=== PATIENT | female | born 1990 | race Caucasian/White ===

== ENCOUNTER 2020-08-05 01:53 | Emergency (ER) | payer SELFPAY ==
[2020-08-05 08:50] LABS: APPEARANCE,URINE SLIGHTLY-CLOUDY; BILIRUBIN,URINE NEGATIVE (NEGATIVE); COLOR,URINE YELLOW; GLUCOSE, URINE NEGATIVE (NEGATIVE); KETONES,URINE NEGATIVE (NEGATIVE); LEUKOCYTE ESTERASE,URINE TRACE (NEGATIVE); NITRITE,URINE NEGATIVE (NEGATIVE); PROTEIN,URINE NEGATIVE (NEGATIVE); URINE SPECIFIC GRAVITY 1.025
[2020-08-05] MEDS ORDERED: PREDNISONE 20 MG TABLET PO ONE (08:58)
[2020-08-05] MEDS ORDERED: LIDOCAINE 2% VISCOUS SOLN 15 ML UDCUP PO ONE (08:58)
[2020-08-05] MEDS ORDERED: METOCLOPRAMIDE HCL ORAL SOLN 10 MG/10 ML UDCUP PO ONE (08:58)
[2020-08-05] MEDS ORDERED: BENZONATATE 100 MG CAPSULE PO ONE (08:58)
[2020-08-05] MEDS ORDERED: MAG HYDROX/AL HYDROX/SIMETH SUSP 30 ML UDCUP PO ONE (08:58)
--- NOTE | 2020-08-05 08:59 | ER Document Report ---
ED General - General Chief Complaint: Black/Tarry Stools Stated Complaint: BLACK STOOL BURNING IN STOMACH Time Seen by Provider: 08/05/20 08:39 Mode of Arrival: Ambulatory Information source: Patient Notes: Otherwise healthy 30-year-old female presenting to the emergency department with chief complaint of cough that has been ongoing for the last 6 months. She reports it is a dry nonproductive cough. She is also complaining of black tarry stools for the last 3 days. She does report a history of acid reflux and states she was taking Pepto-Bismol which she is wondering if that is contributing to her black stools. She denies any fever, chills, nausea, vomiting or diarrhea. - Related Data Allergies/Adverse Reactions: No Known Allergies Allergy (Verified 08/05/20 02:58) Home Medications: finished amoxicillin Past Medical History - Social History Smoking Status: Never Smoker Family History: None Physical Exam - Vital signs Vitals: Temp Pulse Resp BP Pulse Ox 98.8 F 101 H 15 147/88 H 100 08/05/20 02:00 08/05/20 02:00 08/05/20 02:00 08/05/20 02:00 08/05/20 02:00 Course - Re-evaluation Re-evalutation: 08/05/20 10:56 Rectal exam performed with TALI Moore as metaphysicist. No blood on Hemoccult card. Patient's work-up today was reassuring. Laboratory investigations show no acute abnormalities. Black tarry stools likely secondary to recent Pepto-Bismol use. Patient will follow up with primary care. Chest X-Ray 08/05/20 08:59 IMPRESSION: NO ACUTE RADIOGRAPHIC FINDING IN THE CHEST. Laboratory 08/05/20 08/05/20 08/05/20 08:12 08:29 08:29 WBC Cancelled RBC Cancelled Hgb Cancelled Hct Cancelled MCV Cancelled MCH Cancelled MCHC Cancelled RDW Cancelled Plt Count Cancelled Lymph % (Auto) Cancelled Summers % (Auto) Cancelled Eos % (Auto) Cancelled Baso % (Auto) Cancelled Absolute Neuts (auto) Cancelled Absolute Lymphs (auto) Cancelled Absolute Monos (auto) Cancelled Absolute Eos (auto) Cancelled Absolute Basos (auto) Cancelled Total Counted Seg Neutrophils % Cancelled Seg Neuts % (Manual) Lymphocytes % (Manual) Monocytes % (Manual) Eosinophils % (Manual) Basophils % (Manual) Abs Neuts (Manual) Abs Lymphs (Manual) Abs Monocytes (Manual) Absolute Eos (Manual) Abs Basophils (Manual) Platelet Estimate Cancelled Clumped Platelets Platelet Comment Hypochromasia Poikilocytosis Anisocytosis Microcytosis Ovalocytes Sodium 139.6 Potassium 4.0 Chloride 104 Carbon Dioxide 25 Anion Gap 11 BUN 12 Creatinine 0.60 Est GFR ( Amer) > 60 Est GFR (MDRD) Non-Af > 60 Glucose 105 Calcium 9.1 Total Bilirubin 0.4 Direct Bilirubin 0.3 Neonat Total Bilirubin Not Reportable Neonat Direct Bilirubin Not Reportable Neonat Indirect Bili Not Reportable AST 23 ALT 18 Alkaline Phosphatase 91 Total Protein 8.4 H Albumin 4.6 Lipase 73.9 Urine Color YELLOW Urine Appearance SLIGHTLY-CLOUDY Urine pH 5.0 Ur Specific [place] 1.025 Urine Protein NEGATIVE Urine Glucose (UA) NEGATIVE Urine Ketones NEGATIVE Urine Blood NEGATIVE Urine Nitrite NEGATIVE Urine Bilirubin NEGATIVE Urine Urobilinogen 2.0 H Ur Leukocyte Esterase TRACE H Urine WBC (Auto) 4 Urine RBC (Auto) 5 Squamous Epi Cells Auto 7 Urine Mucus (Auto) OCC Urine Ascorbic Acid NEGATIVE Urine HCG, Qual NEGATIVE Slides for Path Review Cancelled 08/05/20 09:46 WBC 9.7 RBC 4.79 Hgb 10.1 L Hct 32.0 L MCV 67 L MCH 21.1 L MCHC 31.7 L RDW 18.6 H Plt Count 379 Lymph % (Auto) Not Reportable Summers % (Auto) Not Reportable Eos % (Auto) Not Reportable Baso % (Auto) Not Reportable Absolute Neuts (auto) Not Reportable Absolute Lymphs (auto) Not Reportable Absolute Monos (auto) Not Reportable Absolute Eos (auto) Not Reportable Absolute Basos (auto) Not Reportable Total Counted 100 Seg Neutrophils % Not Reportable Seg Neuts % (Manual) 60 Lymphocytes % (Manual) 34 Monocytes % (Manual) 6 Eosinophils % (Manual) 0 Basophils % (Manual) 0 Abs Neuts (Manual) 5.8 Abs Lymphs (Manual) 3.3 Abs Monocytes (Manual) 0.6 Absolute Eos (Manual) 0.0 Abs Basophils (Manual) 0.0 Platelet Estimate Clumped Platelets PRESENT Platelet Comment ADEQUATE Hypochromasia 1+ Poikilocytosis 1+ Anisocytosis 2+ Microcytosis 2+ Ovalocytes 1+ Sodium Potassium Chloride Carbon Dioxide Anion Gap BUN Creatinine Est GFR ( Amer) Est GFR (MDRD) Non-Af Glucose Calcium Total Bilirubin Direct Bilirubin Neonat Total Bilirubin Neonat Direct Bilirubin Neonat Indirect Bili AST ALT Alkaline Phosphatase Total Protein Albumin Lipase Urine Color Urine Appearance Urine pH Ur Specific [place] Urine Protein Urine Glucose (UA) Urine Ketones Urine Blood Urine Nitrite Urine Bilirubin Urine Urobilinogen Ur Leukocyte Esterase Urine WBC (Auto) Urine RBC (Auto) Squamous Epi Cells Auto Urine Mucus (Auto) Urine Ascorbic Acid Urine HCG, Qual Slides for Path Review - Vital Signs Vital signs: Temp Pulse Resp BP Pulse Ox 98.8 F 84 14 119/84 100 08/05/20 02:00 08/05/20 11:10 08/05/20 11:10 08/05/20 11:10 08/05/20 11:10 - Laboratory Result Diagrams: 08/05/20 09:46 08/05/20 08:29 Laboratory results interpreted by me: 08/05/20 08/05/20 08/05/20 08:12 08:29 09:46 Hgb 10.1 L Hct 32.0 L MCV 67 L MCH 21.1 L MCHC 31.7 L RDW 18.6 H Total Protein 8.4 H Urine Urobilinogen 2.0 H Ur Leukocyte Esterase TRACE H Discharge - Discharge Clinical Impression: Cough, Epigastric pain Condition: Stable Disposition: HOME, SELF-CARE Additional Instructions: Please take medications as prescribed. Follow-up with primary care and[facility]or [facility]. Return if any new or worsening symptoms. Try to avoid taking Pepto-Bismol. Prescriptions: Benzonatate [Tessalon Perles 100 mg Capsule] 1 - 2 tab PO Q8HP PRN #30 capsule PRN Reason: Famotidine [Pepcid 20 mg Tablet] 20 mg PO BID #12 tablet Prednisone 10 mg PO ASDIR PRN #21 tablet PRN Reason:
[2020-08-05 09:17] LABS: ALBUMIN 4.6 g/dL (3.5-5.0); ALKALINE PHOSPHATASE 91 U/L (38-126); ANION GAP 11 (5-19); ASPARTATE AMINO TRANSFERASE 23 U/L (14-36); BILIRUBIN,DIRECT 0.3 mg/dL (0.0-0.4); BILIRUBIN,TOTAL 0.4 mg/dL (0.2-1.3); BLOOD UREA NITROGEN 12 mg/dL (7-20); CALCIUM 9.1 mg/dL (8.4-10.2); CARBON DIOXIDE 25 mmol/L (22-30); CHLORIDE 104 mmol/L (98-107); GLUCOSE 105 mg/dL (75-110); TOTAL PROTEIN 8.4 g/dL (6.3-8.2)
--- NOTE | 2020-08-05 09:28 | RADIOLOGY REPORT (SQ) ---
EXAM DESCRIPTION: CHEST 2 VIEWS IMAGES COMPLETED DATE/TIME: 08/05/2020 9:18 am REASON FOR STUDY: cough x6 months COMPARISON: None. EXAM PARAMETERS: NUMBER OF VIEWS: two views TECHNIQUE: Digital Frontal and Lateral radiographic views of the chest acquired. RADIATION DOSE: NA LIMITATIONS: none FINDINGS: LUNGS AND PLEURA: No opacities, masses or pneumothorax. No pleural effusion. MEDIASTINUM AND HILAR STRUCTURES: No masses or contour abnormalities. HEART AND VASCULAR STRUCTURES: Heart normal size. No evidence for failure. BONES: No acute findings. HARDWARE: None in the chest. OTHER: No other significant finding. IMPRESSION: NO ACUTE RADIOGRAPHIC FINDING IN THE CHEST. TECHNICAL DOCUMENTATION: JOB ID: [id number] 2010 [employer]- All Rights Reserved Reading location - IP/workstation name: [email or web address]
[2020-08-05 09:56] LABS: HEMOGLOBIN 10.1 g/dL (12.0-15.5); MEAN CORPUSCULAR HEMOGLOBIN 21.1 pg (27.0-33.4); MEAN CORPUSCULAR HGB CONC 31.7 g/dL (32.0-36.0); MEAN CORPUSCULAR VOLUME 67 fl (80-97); RED BLOOD COUNT 4.79 10^6/uL (3.72-5.28); RED CELL DISTRIBUTION WIDTH 18.6 % (11.5-14.0); WHITE BLOOD COUNT 9.7 10^3/uL (4.0-10.5)
[2020-08-05 10:21] LABS: ABSOLUTE LYMPHOCYTES# (MANUAL) 3.3 10^3/uL (0.5-4.7); ABSOLUTE MONOCYTES # (MANUAL) 0.6 10^3/uL (0.1-1.4); BASOPHILS % (MANUAL) 0 % (0-2); EOSINOPHILS % (MANUAL) 0 % (0-6); LYMPHOCYTES % (MANUAL) 34 % (13-45); MONOCYTES % (MANUAL) 6 % (3-13); SEGMENTED NEUTROPHILS % (MAN) 60 % (42-78); TOTAL CELLS COUNTED 100
[2020-08-05 10:22] LABS: ANISOCYTOSIS 2+; HYPOCHROMASIA 1+; POIKILOCYTOSIS 1+
[2020-08-05 10:23] LABS: OVALOCYTES 1+; PLATELET CLUMPS PRESENT; PLATELET COMMENT ADEQUATE
[2020-08-05 10:24] LABS: PLATELET COUNT 379 10^3/uL (150-450)
[2020-08-05 11:16] VITALS: BP 119/84
== END 2020-08-05 11:16 | disposition home or self-care (01) ==
LOC: ER 01:53
DX: R05 Cough (principal); R10.13 Epigastric pain; R19.5 Other fecal abnormalities
CPT/HCPCS: 99284; 36415; 83690; 85025; 81025; 80053; 81001; 71046; J3490; J7512